=== PATIENT | female | born 1970 | race Caucasian/White ===

== ENCOUNTER 2019-05-19 08:52 | Emergency (ER) | payer OTHER ==
[2019-05-19 08:57] VITALS: BMI 26.6
[2019-05-19] MEDS ORDERED: SODIUM CHLORIDE 1,000 ML IV SCH (09:15)
[2019-05-19 09:27] LABS: BASO % 1.2 % (0-2.0); EOS % 2.1 % (0-4.5); HEMATOCRIT 37.8 % (32.4-45.2); HEMOGLOBIN 12.5 GM/dL (10.7-15.3); LYMPH % 35.7 % (8-40); MCH 28.3 pg (25.7-33.7); MEAN CELL VOLUME 85.8 fl (80-96); PLATELET COUNT 267 K/MM3 (134-434); RDW 13.2 % (11.6-15.6); WHITE BLOOD COUNT 7.3 K/mm3 (4.0-10.0)
[2019-05-19 09:56] LABS: CHOLESTEROL 229 mg/dL (50-200); HDL CHOLESTEROL 85 mg/dL (40-60); LDL CHOLESTEROL (ONLY SJRH) 116 mg/dL (5-100); TRIGLYCERIDES 82 mg/dL (0-150)
[2019-05-19 10:05] LABS: INR 0.87 (0.83-1.09); PROTHROMBIN TIME (PATIENT) 10.3 SEC (9.7-13.0)
--- NOTE | 2019-05-19 10:48 | PDOC ---
History of Present Illness - General Chief Complaint: CVA/TIA Stated Complaint: LT SIDE FACE NUMB Time Seen by Provider: 05/19/19 09:03 History Source: Patient Exam Limitations: No Limitations - History of Present Illness Initial Comments: HPI: 49 y/o female presenting to [facility] ER complaining of sudden onset of left facial numbness and other pinching sensation to the area while drinking coffee this morning. Pt did not spill coffee out of her mouth or drop the mug. Todd a little lightheaded afterwards. Tried to pinch the left side of the face without improvement of symptoms. Did not notice a change in her speech or facial asymmetry. No recent increase in life stress. No nasal congestion or rhinorrhea. H/o of chicken pox infection as a child. No h/o shingles. Believes she may have received the shingles vaccination. 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 Constitutional- Well-developed, well-nourished adult female in no acute distress or obvious discomfort. Found upright on edge of bed. Answered all questions appropriately and completely. No maxillary or frontal sinus tenderness. Head- Normocephalic. No obvious external signs of trauma. Eyes- Pupils 3mm and PERRL. EOMI and nonpainful. No vertical or horizontal nystagmus. Sclerae white. Conjunctiva moist and not injected. Ears- External auditory canals and tympanic membranes pearly [place]. Hearing grossly intact. Nose- No nasal discharge. Throat- Oral cavity and pharynx normal. No inflammation, swelling, exudate, or lesions. Teeth and gingiva in good general condition. Neck- Supple, trachea is midline. Cardiovascular / Chest- Regular rate and regular rhythm. No murmur, rubs, clicks , or gallops. Peripheral pulses- radial pulses full. Respiratory- Breathing unlabored. Equal chest rise and fall. Clear to auscultation bilaterally. No stridor, no wheezing, no rhonchi. Gastrointestinal- abdomen is soft, non-tender, non-distended. Neuro- Alert and oriented x4. Moving all four extremities spontaneously. No facial asymmetry. No slurred speech.No upper or lower extremity drift. Sensation to all four extremities intact. No nuchal rigidity. Intact rapid alternating movements and heel to [place]. Able to distinguish soft and sharp touch on face. Skin- Warm, dry, and intact. No bruising, rashes, or other lesions. Psych- Affect- appropriate. Mood- normal. Speech was non-labored, non- pressured. MDM: 49 y/o female presenting with sudden onset left facial numbness with another difficult describe sensation in the area. Afebrile. Vitals unremarkable for hypotension or tachycardia. Physical exam as described above. CVA protocol ordered. Head CT unremarkable for ICH or other signs of acute ischemia. Laboratory testing unremarkable. Pt's symptoms resolved without medical intervention. Low suspicion for CVA/TIA. Possible prodromal symptoms of herpes zoster vs acute sinusitis. Discussed physical exam findings, laboratory results, and CT findings with pt. Answered all questions. Provided return precautions. pt expressed verbal understanding and agreement with plan to discharge home with outpatient follow up. Provided copies of todays results. Encouraged pt to seek medical attention immediately if she noted skin eruptions for antiviral therapy. Pt to f/u w/ PCP in 1-2 days. Also provided referral to a neurologist. Baltazar Panda M.D., PGY2 Emergency Medicine Resident Past History - Past Medical History Allergies/Adverse Reactions: Allergies Allergy/AdvReac Type Severity Reaction Status Date / Time No Known Allergies Allergy Verified 05/19/19 08:54 Home Medications: Ambulatory Orders Hydrochlorothiazide [Hctz -] 12.5 mg PO DAILY 05/19/19 COPD: No HTN: Yes - Immunization History Immunization Up to Date: Yes - Psycho Social/Smoking Cessation Hx Smoking History: Never smoked Hx Alcohol Use: Yes (occasion) *Physical Exam - Vital Signs Last Vital Signs Temp Pulse Resp BP Pulse Ox 97.9 F 66 18 150/78 99 05/19/19 08:53 05/19/19 08:53 05/19/19 08:53 05/19/19 08:53 05/19/19 09:15 ED Treatment Course - LABORATORY CBC & Chemistry Diagram: 05/19/19 09:15 05/19/19 09:14 - ADDITIONAL ORDERS Additional order review: Laboratory Results 05/19/19 05/19/19 05/19/19 09:40 09:15 09:15 PT with INR 10.30 INR 0.87 PTT (Actin FS) 35.0 Creatine Kinase 187 Creatine Kinase Index 0.9 CK-MB (CK-2) 1.8 Troponin I < 0.02 Triglycerides 82 Cholesterol 229 H Total LDL Cholesterol 116 H HDL Cholesterol 85 H Serum , Qual Negative 05/19/19 09:15 RBC 4.40 MCV 85.8 MCHC 33.0 RDW 13.2 MPV 10.0 Neutrophils % 50.0 Lymphocytes % 35.7 D Monocytes % 11.0 H Eosinophils % 2.1 Basophils % 1.2 Discharge - Discharge Information Problems reviewed: Yes Clinical Impression/Diagnosis: Left facial numbness Condition: Improved Disposition: HOME - Admission No - Follow up/Referral Referrals: Murphy Chery NP [Primary Care Provider] - Ramez Gilbert MD [Staff Physician] - - Patient Discharge Instructions Patient Printed Discharge Instructions: DI for Shingles, DI for Numbness/ tingling Additional Instructions: You were seen today for numbness below your left eye. Your Head CT and blood tests were normal. The symptoms went away by themselves. You may have the early signs of the Shingles, or sinus congestion. Call your doctor or go to an urgent care right away if you start to see skin changes in the area that was numb. You can take over the counter Tylenol or Advil as needed for pain. Take as directed on the package insert. Do not exceed the recommended dosage. Follow up with your primary care doctor in the next 1-2 days. You will need to call to make an appointment. The number is included in this packet. A copy of todays results are attached to this packet. Take it to the appointment so your doctor can review them. You can also follow up with a neurologist. I have entered a referral for you to see Dr. Gilbert. You will need to call to make an appointment. The number is included in this packet. A copy of todays results are attached to this packet. Take it to the appointment so your doctor can review them. Go to the nearest emergency department if your condition worsens or you feel like you need additional emergency evaluation. Print Language: FAROESE - Post Discharge Activity
--- NOTE | 2019-05-19 11:06 | PDOC ---
Attending Attestation - Resident Resident Name: Baltazar Panda - ED Attending Attestation I have performed the following: I have examined & evaluated the patient, The case was reviewed & discussed with the resident, I agree w/resident's findings & plan, Exceptions are as noted - HPI HPI: 05/19/19 11:03 49 F with h/o HTN presents to ED with L facial numbness and tingling. Pt states that she was having breakfast this morning when she felt her L cheek start to tingle, "as if an ant was walking across it". She denies any weakness or facial droop. She states that when she felt her cheek, it felt slightly numb. Denies any headache. Denies facial pain. Denies weakness/numbness in any extremity. Pt states that the symptoms lasted a few hours before resolving spontaneously. She currently denies any complaints. - Physicial Exam PE: 05/19/19 11:05 "GENERAL: Awake, alert, and fully oriented, in no acute distress. HEAD: No signs of trauma EYES: PERRLA, EOMI, sclera anicteric, conjunctiva clear ENT: Auricles normal inspection, hearing grossly normal, nares patent, oropharynx clear without exudates. Moist mucosa NECK: Nontender, no stepoffs, Normal ROM, supple, no lymphadenopathy, JVD, or masses LUNGS: Breath sounds equal, clear to auscultation bilaterally. No wheezes, and no crackles HEART: Regular rate and rhythm, normal S1 and S2, no murmurs, rubs or gallops ABDOMEN: Soft, nontender, normoactive bowel sounds. No guarding, no rebound. No masses EXTREMITIES: Normal range of motion, no edema. No clubbing or cyanosis. No cords, erythema, or tenderness NEUROLOGICAL: Cranial nerves II through XII intact. 5/5 strength and sensation in all extremities, Normal speech, normal gait, normal cerebellar function SKIN: Warm, Dry, normal turgor, no rashes or lesions noted. - Medical Decision Making 05/19/19 11:05 49 F with L facial numbness, now resolved. Pt with completely normal neuro exam at this time. No evidence of tang's palsy. No rash to suggest herpes zoster. - Labs - CT head normal 05/19/19 12:29 Labs wnl Pt is well appearing, with normal vitals. Clinically stable for DC at this time. I discussed the physical exam findings, ancillary test results and final diagnoses with the patient. I answered all of the patient's questions. The patient was satisfied with the care received and felt comfortable with the discharge plan and treatment plan. The patient agrees to follow up with the primary care physician within 24-72 hours.
[2019-05-19 11:23] LABS: PH,URINE 5.5 (5.0-8.0); URINE APPEARANCE CLEAR; URINE BILIRUBIN NEGATIVE (NEGATIVE); URINE COLOR YELLOW; URINE GLUCOSE (UA) NEGATIVE (NEGATIVE); URINE KETONE NEGATIVE (NEGATIVE); URINE LEUK ESTERASE NEGATIVE (NEGATIVE); URINE NITRITE NEGATIVE (NEGATIVE); URINE PROTEIN NEGATIVE (NEGATIVE); URINE UROBILINOGEN 0.2 mg/dL (0.2-1.0)
[2019-05-19 11:51] VITALS: BP 144/88; PULSE 59; TEMP 97.7
[2019-05-19 12:06] LABS: BILIRUBIN,TOTAL 0.3 mg/dL (0.2-1); BLOOD UREA NITROGEN 14.8 mg/dL (7-18); CREATININE 0.9 mg/dL (0.55-1.3); POTASSIUM 4.3 mmol/L (3.5-5.1); TOT PROT 7.8 g/dl (6.4-8.2)
[2019-05-19 12:17] LABS: CALCIUM 9.7 mg/dL (8.5-10.1)
--- NOTE | 2019-05-20 14:30 | EKG ---
Test Reason : Blood Pressure : / mmHG Vent. Rate : 056 BPM Atrial Rate : 056 BPM P-R Int : 140 ms QRS Dur : 086 ms QT Int : 410 ms P-R-T Axes : 030 018 024 degrees QTc Int : 395 ms SINUS BRADYCARDIA OTHERWISE NORMAL ECG WHEN COMPARED WITH ECG OF 09-DEC-2009 10:47, NO SIGNIFICANT CHANGE WAS FOUND Confirmed by LYDIA LEDESMA MD ([id number]) on 05/20/2019 2:29:53 PM Referred By: Confirmed By:LYDIA LEDESMA MD
== END 2019-05-19 12:50 | disposition home or self-care (01) ==
LOC: JER 08:52
DX: R20.0 Anesthesia of skin (principal); I10 Essential (primary) hypertension; F41.9 Anxiety disorder, unspecified; Z98.51 Tubal ligation status
CPT/HCPCS: 36415; 70450-TC; 80053; 80061; 81003; 82550; 82553; 83721; 84484; 84703; 85025; 85610; 85730; 86850; 86900; 86901; 93005; 93010; 99284-25; J7030

== ENCOUNTER 2020-06-28 20:53 | Emergency (ER) | payer OTHER ==
[2020-06-28 21:05] VITALS: BP 161/65; PULSE 65; TEMP 98; BMI 31.8
[2020-06-28] MEDS ORDERED: METHOCARBAMOL 500 MG TABLET PO ONE (21:23)
[2020-06-28] MEDS ORDERED: LIDOCAINE 5% TOPICAL PATCH TP ONE (21:23)
[2020-06-28] MEDS ORDERED: diazePAM 5 MG TABLET PO ONE (21:24)
[2020-06-28] MEDS ORDERED: LIDOCAINE 5% TOPICAL PATCH ONE (21:30)
[2020-06-28] MEDS ORDERED: METHOCARBAMOL 500 MG TABLET ONE (21:30)
[2020-06-28] MEDS ORDERED: diazePAM 5 MG TABLET ONE ×2 (21:30→21:41)
[2020-06-28 22:06] LABS: PH,URINE 6.5 (5.0-8.0); URINE APPEARANCE CLEAR; URINE BILIRUBIN NEGATIVE (NEGATIVE); URINE COLOR YELLOW; URINE GLUCOSE (UA) NEGATIVE (NEGATIVE); URINE KETONE NEGATIVE (NEGATIVE); URINE LEUK ESTERASE NEGATIVE (NEGATIVE); URINE NITRITE NEGATIVE (NEGATIVE); URINE PROTEIN NEGATIVE (NEGATIVE); URINE UROBILINOGEN 0.2 mg/dL (0.2-1.0)
[2020-06-29] MEDS ORDERED: LIDOCAINE PATCH REMOVAL MC SCH (10:00)
== END 2020-06-28 22:20 | disposition home or self-care (01) ==
LOC: JER 20:53
DX: M62.830 Muscle spasm of back (principal)
CPT/HCPCS: 72100-TC-FY; 81003; 87086; 99284-25

== ENCOUNTER 2021-01-18 04:04 | Emergency (ER) | payer OTHER ==
[2021-01-18 05:08] VITALS: BP 148/86; PULSE 64; TEMP 97.5; BMI 29.9
== END 2021-01-18 05:46 | disposition home or self-care (01) ==
LOC: JER 04:04
DX: S05.8X2A Other injuries of left eye and orbit, initial encounter (principal); Y99.8 Other external cause status
CPT/HCPCS: 99283-25

== ENCOUNTER 2021-04-30 17:56 | Emergency (ER) | payer OTHER ==
[2021-04-30 18:12] VITALS: BP 143/82; PULSE 77; BMI 34.6
[2021-04-30 21:04] LABS: EOS % 1.6 % (0-4.5); HEMOGLOBIN 12.4 GM/dL (10.7-15.3); LYMPH % 30.2 % (8-40); MCH 27.1 pg (25.7-33.7); MCHC 32.6 g/dl (32.0-36.0); MEAN CELL VOLUME 83.3 fl (80-96); MEAN PLT VOLUME 9.4 fl (7.5-11.1); MONO % 13.1 % (3.8-10.2); NEUT % 54.1 % (42.8-82.8); PLATELET COUNT 314 10^3/uL (134-434); RBC 4.56 M/mm3 (3.60-5.2); RDW 14.2 % (11.6-15.6); WHITE BLOOD COUNT 8.3 K/mm3 (4.0-10.0)
[2021-04-30 21:28] LABS: CHLORIDE 100 mmol/L (98-107); SODIUM 138 mmol/L (136-145)
[2021-04-30 21:30] LABS: ALBUMIN 3.8 g/dl (3.4-5.0); ANION GAP 8 MMOL/L (8-16); BLOOD UREA NITROGEN 13.8 mg/dL (7-18); CALCIUM 9.6 mg/dL (8.5-10.1); CO2 30 mmol/L (21-32); GLUCOSE,RANDOM 109 mg/dL (74-106)
[2021-04-30 21:31] LABS: LIPASE 236 U/L (73-393); MAGNESIUM 2.6 mg/dL (1.8-2.4)
[2021-04-30 21:33] LABS: SGOT/AST 16 U/L (15-37)
[2021-04-30 21:34] LABS: SGPT/ALT 30 U/L (13-61)
[2021-04-30 21:35] LABS: BILIRUBIN,TOTAL 0.2 mg/dL (0.2-1)
[2021-04-30 21:36] LABS: ALK PHOS 116 U/L (45-117); TOT PROT 8.3 g/dl (6.4-8.2)
== END 2021-05-01 00:17 | disposition home or self-care (01) ==
LOC: JER 17:56
DX: R07.89 Other chest pain (principal)
CPT/HCPCS: 36415; 71046-TC-FY; 80053; 82550; 83690; 83735; 84443; 84484; 85025; 93005; 93010; 99284-25; C9803; U0003; U0005

== ENCOUNTER 2022-10-05 01:22 | Emergency (ER) | payer OTHER ==
[2022-10-05 01:35] VITALS: BMI 32.8
[2022-10-05] MEDS ORDERED: FAMOTIDINE 20 MG/50 ML IVPB 20 MG/50 ML MG IVPB ONE ×2 (02:12→02:20)
[2022-10-05] MEDS ORDERED: ASPIRIN 81 MG CHEWABLE TABLETS PO ONE (02:12)
[2022-10-05] MEDS ORDERED: MAG HYDROX/AL HYDROX/SIMETH -MYLANTA- ORAL SUSPENSION PO ONE (02:12)
[2022-10-05] MEDS ORDERED: ACETAMINOPHEN 1000 MG/100 ML BAG IVPB ONE (02:12)
[2022-10-05] MEDS ORDERED: ACETAMINOPHEN INJECTION 100 ML IVPB ONE (02:19)
[2022-10-05] MEDS ORDERED: ASPIRIN 81 MG CHEWABLE TABLETS ONE (02:19)
[2022-10-05] MEDS ORDERED: MAG HYDROX/AL HYDROX/SIMETH 30 ML UNIT-DOSE CUP ONE (02:20)
[2022-10-05 02:27] LABS: BASO % 0.9 % (0-2.0); EOS % 2.6 % (0-4.5); HEMATOCRIT 33.7 % (32.4-45.2); HEMOGLOBIN 11.7 GM/dL (10.7-15.3); INR 0.95 (0.83-1.09); LYMPH % 35.2 % (8-40); MCH 29.2 pg (25.7-33.7); MCHC 34.8 g/dl (32.0-36.0); MEAN CELL VOLUME 83.9 fl (80-96); MEAN PLT VOLUME 9.8 fl (7.5-11.1); NEUT % 47.3 % (42.8-82.8); PLATELET COUNT 267 10^3/uL (134-434); RBC 4.01 M/mm3 (3.60-5.2); RDW 13.2 % (11.6-15.6); WHITE BLOOD COUNT 10.1 K/mm3 (4.0-10.0)
[2022-10-05 02:29] LABS: ACTIVATED PTT 33.7 SECONDS (25.2-36.5)
[2022-10-05 02:38] LABS: POTASSIUM 3.2 mmol/L (3.5-5.1)
[2022-10-05 02:40] LABS: ALBUMIN 3.5 g/dl (3.4-5.0); BLOOD UREA NITROGEN 17.1 mg/dL (7-18)
[2022-10-05 02:44] LABS: CREATININE 1.1 mg/dL (0.55-1.3)
[2022-10-05 02:45] LABS: BILIRUBIN,TOTAL 0.3 mg/dL (0.2-1); TOT PROT 7.7 g/dl (6.4-8.2)
[2022-10-05 04:31] VITALS: BP 108/68; PULSE 52; RESP 18; TEMP 97.6
== END 2022-10-05 04:53 | disposition home or self-care (01) ==
LOC: JER 01:22
PROC: 3E033GC Introduction of Other Therapeutic Substance into Peripheral Vein, Percutaneous Approach (ICD-10-PCS; principal; 2022-10-05)
PROC: 3E033NZ Introduction of Analgesics, Hypnotics, Sedatives into Peripheral Vein, Percutaneous Approach (ICD-10-PCS; 2022-10-05)
DX: R07.9 Chest pain, unspecified (principal)
CPT/HCPCS: 36415; 71046-TC-FY; 80053; 84484; 85025; 85610; 85730; 93005; 93010; 99285-25

== ENCOUNTER 2023-05-10 05:01 | Emergency (ER) | payer OTHER ==
[2023-05-10 05:14] VITALS: BP 155/75; PULSE 75; RESP 18; TEMP 98.3; BMI 31.3
[2023-05-10] MEDS ORDERED: IBUPROFEN 400 MG TABLET (FP) PO ONE ×2 (07:39→07:46)
[2023-05-10 08:37] LABS: BASO % 0.8 % (0-2.0); EOS % 1.2 % (0-4.5); HEMATOCRIT 35.5 % (32.4-45.2); HEMOGLOBIN 11.5 GM/dL (10.7-15.3); LYMPH % 17.3 % (8-40); MCH 27.8 pg (25.7-33.7); MCHC 32.3 g/dl (32.0-36.0); MEAN CELL VOLUME 86.1 fl (80-96); MEAN PLT VOLUME 9.4 fl (7.5-11.1); MONO % 10.8 % (3.8-10.2); NEUT % 69.9 % (42.8-82.8); PLATELET COUNT 271 10^3/uL (134-434); RBC 4.13 M/mm3 (3.60-5.2); RDW 13.7 % (11.6-15.6); WHITE BLOOD COUNT 13.3 K/mm3 (4.0-10.0)
[2023-05-10 08:50] LABS: POTASSIUM 4.1 mmol/L (3.5-5.1)
[2023-05-10 08:53] LABS: ALBUMIN 3.3 g/dl (3.4-5.0); BLOOD UREA NITROGEN 12.2 mg/dL (7-18)
[2023-05-10 08:57] LABS: BILIRUBIN,TOTAL 0.8 mg/dL (0.2-1); CREATININE 0.8 mg/dL (0.55-1.3)
[2023-05-10 08:58] LABS: TOT PROT 7.4 g/dl (6.4-8.2)
== END 2023-05-10 09:47 | disposition home or self-care (01) ==
LOC: JER 05:01
DX: R51.9 Headache, unspecified (principal); J02.9 Acute pharyngitis, unspecified; R05.9 Cough, unspecified; J06.9 Acute upper respiratory infection, unspecified; Z20.822 Contact with and (suspected) exposure to COVID-19
CPT/HCPCS: 0241U-QW; 36415; 71046-TC-FY; 80053; 84484; 85025; 93005; 93010; 99285-25

== ENCOUNTER 2024-01-09 21:23 | Emergency (ER) | payer SELFPAY ==
[2024-01-09 21:34] VITALS: RESP 18; TEMP 98.2; BMI 31.9
[2024-01-09] MEDS ORDERED: MAG HYDROX/AL HYDROX/SIMETH 30 ML UNIT-DOSE CUP ONE (22:22)
[2024-01-09] MEDS ORDERED: ACETAMINOPHEN 325 MG TABLET (FP) ONE (22:22)
[2024-01-09] MEDS: ACETAMINOPHEN 325 MG TABLET (FP) PO ONE (22:26)
[2024-01-09] MEDS: MAG HYDROX/AL HYDROX/SIMETH 30 ML UNIT-DOSE CUP PO ONE (22:26)
[2024-01-09] MEDS ORDERED: FAMOTIDINE 20 MG/50 ML IVPB 20 MG/50 ML MG IVPB ONE (22:29)
[2024-01-09 22:32] LABS: BASO % 0.7 % (0-2.0); EOS % 0.9 % (0-4.5); HEMATOCRIT 35.5 % (32.4-45.2); HEMOGLOBIN 11.8 GM/dL (10.7-15.3); LYMPH % 24.1 % (8-40); MCH 27.9 pg (25.7-33.7); MCHC 33.1 g/dl (32.0-36.0); MEAN CELL VOLUME 84.3 fl (80-96); MEAN PLT VOLUME 8.8 fl (7.5-11.1); MONO % 11.4 % (3.8-10.2); NEUT % 62.9 % (42.8-82.8); PLATELET COUNT 291 10^3/uL (134-434); RBC 4.22 M/mm3 (3.60-5.2); RDW 13.7 % (11.6-15.6); WHITE BLOOD COUNT 12.3 K/mm3 (4.0-10.0)
[2024-01-09] MEDS: FAMOTIDINE 20 MG/50 ML IVPB 20 MG/50 ML MG IVPB ONE (22:34)
[2024-01-09 22:55] LABS: POTASSIUM 3.4 mmol/L (3.5-5.1)
[2024-01-09 22:57] LABS: ALBUMIN 3.6 g/dl (3.4-5.0); BLOOD UREA NITROGEN 17.8 mg/dL (7-18); CALCIUM 9.3 mg/dL (8.5-10.1)
[2024-01-09 23:01] LABS: CREATININE 1.4 mg/dL (0.55-1.3)
[2024-01-09 23:02] LABS: BILIRUBIN,TOTAL 0.4 mg/dL (0.2-1); TOT PROT 7.5 g/dl (6.4-8.2)
[2024-01-09] MEDS ORDERED: POTASSIUM CHLORIDE ORAL LIQUID 20 MEQ/15 ML ONE (23:52)
[2024-01-10] MEDS: LACTATED RINGERS SOLUTION 1000 ML INFUS.BAG IV ONE
[2024-01-10] MEDS: POTASSIUM CHLORIDE ORAL LIQUID 20 MEQ/15 ML PO ONE
[2024-01-10] MEDS: DICYCLOMINE HCL 20 MG/2 ML AMPUL IM ONE (00:15)
[2024-01-10 01:11] VITALS: BP 114/55; PULSE 49
== END 2024-01-10 01:12 | disposition home or self-care (01) ==
LOC: JER 21:23
PROC: 3E033GC Introduction of Other Therapeutic Substance into Peripheral Vein, Percutaneous Approach (ICD-10-PCS; principal; 2024-01-09)
PROC: 3E023GC Introduction of Other Therapeutic Substance into Muscle, Percutaneous Approach (ICD-10-PCS; 2024-01-10)
DX: R10.13 Epigastric pain (principal); R63.0 Anorexia
CPT/HCPCS: 36415; 71045-TC-FY; 76705-TC; 80053; 83690; 84484; 85025; 93005; 93010; 99285-25